=== PATIENT | female | born 1955 | race Caucasian/White ===

== ENCOUNTER 2016-08-20 18:42 | Emergency (ER) | payer BC ==
[~2016-08-20] VITALS: Ht 162.6 cm; Wt 82.5 kg
[~2016-08-20 18:42] MED LIST: ALPR0.5T PO; ATOR40TA68 PO; LOSA100T7 PO; METF500T4 PO; NAPR-260 PO; SYN112 PO
[2016-08-20 19:14] VITALS: Ht 162.6 cm; Wt 82.5 kg
[2016-08-20] MEDS ORDERED: ULT50 PO (20:36)
[2016-08-20] MEDS ORDERED: traMADol 50 MG TAB PO ONE (21:00)
--- NOTE | 2016-08-20 21:16 | ERD ---
ER Documentation Chief Complaint Date/Time DATE: 08/20/16 TIME: 21:12 Chief Complaint Left foot pain X 1month. HPI Patient is a 61-year-old female with diabetes and fibromyalgia who presents with left-sided foot pain. The patient has left-sided foot pain for 1 month. The patient went to the primary doctor and then was sent to an urgent care to get an x-ray. The x-ray showed DJD but no fracture or dislocation. She has pain over the dorsal surface on the lateral side of the left foot. She has tried ibuprofen and diclofenac. There is no fevers or redness. The primary doctor is Dr. Vargas. ROS All systems reviewed and are negative except as per history of present illness. Medications Home Meds Active Scripts Tramadol HCl (Tramadol HCl) 50 Mg Tablet, 50 MG PO Q6 Y for PAIN, #20 TAB Prov:MONI QUINTANA MD 08/20/16 Naproxen* (Naprosyn*) 500 Mg Tablet, 500 MG PO BID Y for PAIN AND/OR INFLAMMATION, #30 TAB Prov:SANDHYA GAYTAN MD 11/12/15 Alprazolam* (Xanax*) 0.5 Mg Tab, 0.5 MG PO TID Y for MUSCLE SPASMS, #12 TAB Prov:SANDHYA GAYTAN MD 11/12/15 Reported Medications Atorvastatin* (Atorvastatin*) 40 Mg Tablet, 40 MG PO QHS, #30 TAB 11/12/15 Metformin* (Glucophage*) 500 Mg Tab, 500 MG PO BID, TAB 10/09/14 Levothyroxine Sodium* (Levothyroxine Sodium*) 112 Mcg Tablet, 112 MCG PO AC BREAKFAST, TAB 10/09/14 Losartan Potassium* (Losartan Potassium*) 100 Mg Tablet, 100 MG PO DAILY, TAB 10/09/14 Allergies Allergies: Coded Allergies: Penicillins (Verified Allergy, Unknown, 08/20/16) PMhx/Soc History of Surgery: Yes (right knee surgery; bladder surgery) Anesthesia Reaction: No Hx Neurological Disorder: Yes (cva, hypothyroidism) Hx Respiratory Disorders: No Hx Cardiac Disorders: Yes (Hx of stroke; hypertension;high cholesterol) Hx Psychiatric Problems: No Hx Miscellaneous Medical Probl: Yes (arthritis;thyroid problems; dm) Hx Alcohol Use: No Hx Substance Use: No Hx Tobacco Use: No Smoking Status: Never smoker FmHx Family History: diabetes Physical Exam Vitals Vital Signs Date Time Temp Pulse Resp B/P Pulse Ox O2 Delivery O2 Flow Rate FiO2 08/20/16 19:14 98.8 82 16 194/88 97 Physical Exam Const: No acute distress Head: Atraumatic Eyes: Normal Conjunctiva ENT: Normal External Ears, Nose and Mouth. Neck: Full range of motion..~ No meningismus. Resp: Clear to auscultation bilaterally Cardio: Regular rate and rhythm, no murmurs Abd: Soft, non tender, non distended. Normal bowel sounds Skin: No petechiae or rashes, no sign of cellulitis Back: No midline or flank tenderness Ext: Tenderness over the left lateral foot without deformity noted, pulses intact, no pallor or coolness to touch Neur: Awake and alert Psych: Normal Mood and Affect Results 24 hrs Current Medications Medications (Trade) Dose Ordered Sig/Dequan Route PRN Reason Start Time Stop Time Status Last Admin Dose Admin Tramadol HCl (Ultram) 50 mg ONCE ONCE PO 08/20/16 21:00 08/20/16 21:01 DC 08/20/16 21:00 Procedures/MDM Patient is a 61-year-old female with fibromyalgia presents with left-sided foot pain. She should be the results of her x-ray which showed DJD she has no obvious fracture or dislocation. She has no sign of infection. She has good pulses. At this point I doubt neurovascular compromise. I doubt cellulitis or infection. I doubt fracture dislocation and I do not believe she requires further imaging. She is requesting an MRI but I do not think that she needs an MRI from the emergency department. Her doctor can order an outpatient MRI if he feels this is appropriate. The patient will be given a prescription for tramadol for pain. Departure Diagnosis: Primary Impression: Foot pain Laterality: left Qualified Code: M79.672 - Left foot pain Condition: Fair Patient Instructions: Sprain Foot Referrals: VICKI VARGAS MD (PCP) Additional Instructions: Llame al doctor MAANA y samuel amanda CECI PARA DENTRO DE 1-2 MARIE.Dgale a la secretaria que nosotros le instruimos hacer esta ceci.Avise o llame si thurman condicin se empeora antes de la ceci. Regresa aqui si peor o no mejor. MONI QUINTANA MD Aug 20, 2016 21:16
== END 2016-08-20 21:07 | disposition home or self-care (01) ==
LOC: FTE 18:42
DX: M79.672 Pain in left foot (principal); I10 Essential (primary) hypertension; E03.9 Hypothyroidism, unspecified; E11.9 Type 2 diabetes mellitus without complications; Z79.84 Long term (current) use of oral hypoglycemic drugs
CPT/HCPCS: 99283; Z7610